=== PATIENT | female | born 1995 | race Caucasian/White ===

== ENCOUNTER 2018-04-14 21:21 | Emergency (ER) | payer BC ==
[~2018-04-14] VITALS: Ht 167.6 cm; Wt 62.1 kg
[2018-04-14 21:25] VITALS: Ht 167.6 cm; Wt 62.1 kg
[2018-04-14 23:09] VITALS: BP 116/76
== END 2018-04-14 23:09 | disposition home or self-care (01) ==
LOC: ED 21:21
DX: S60.112A Contusion of left thumb with damage to nail, initial encounter (principal); W22.8XXA Striking against or struck by other objects, initial encounter; Y93.89 Activity, other specified; Y92.89 Other specified places as the place of occurrence of the external cause; Y99.8 Other external cause status

== ENCOUNTER 2018-08-28 15:50 | Emergency (ER) | payer BC ==
[~2018-08-28] VITALS: Ht 167.6 cm; Wt 63.1 kg
[2018-08-28 16:00] VITALS: BP 111/66; Ht 167.6 cm; Wt 63.1 kg
== END 2018-08-28 17:01 | disposition home or self-care (01) ==
LOC: ED 15:50
DX: S16.1XXA Strain of muscle, fascia and tendon at neck level, initial encounter (principal); M54.9 Dorsalgia, unspecified; M25.551 Pain in right hip; Z86.2 Personal history of diseases of the blood and blood-forming organs and certain disorders involving the immune mechanism; V48.6XXA Car passenger injured in noncollision transport accident in traffic accident, initial encounter; Y93.89 Activity, other specified; Y92.411 Interstate highway as the place of occurrence of the external cause; Y99.8 Other external cause status
CPT/HCPCS: Q0092

== ENCOUNTER 2020-10-23 19:47 | Emergency (ER) | payer OTHER ==
[~2020-10-23] VITALS: Ht 167.6 cm; Wt 61.2 kg
[2020-10-23 20:05] VITALS: Ht 167.6 cm; Wt 61.2 kg
[2020-10-23 20:45] LABS: CHLORIDE SERUM 104 mmol/L (98-107); CREATININE SERUM 0.6 mg/dL (0.6-1.0); GFR1 > 60 mL/min; GLUCOSE SERUM 83 mg/dL (74-106); POTASSIUM SERUM 3.4 mmol/L (3.5-5.1); SODIUM SERUM 142 mmol/L (136-145)
[2020-10-23 20:47] LABS: BASOPHIL % 1.3 % (0.2-1.3); PLATELET COUNT 341 x10^3mcL (179-408); RED CELL DISTRIBUTION WIDTH 13.2 % (12.3-17.7)
[2020-10-23 20:50] LABS: ALKALINE PHOSPHATASE 86 U/L (46-116); ALT/SGPT 16 U/L (14-59); AST/SGOT 14 U/L (15-37); LIPASE 118 IU/L (73-393); TOTAL PROTEIN, SERUM 7.4 g/dL (6.4-8.2)
[2020-10-23] MEDS ORDERED: PEPCID40 MG PO (21:12)
[2020-10-23 21:22] VITALS: BP 96/65
== END 2020-10-23 21:22 | disposition home or self-care (01) ==
LOC: ED 19:47
PROVIDERS: Emergency Medicine
DX: R07.89 Other chest pain (principal); R06.00 Dyspnea, unspecified; R00.2 Palpitations
CPT/HCPCS: 85378